=== PATIENT | male | born 1955 | race Caucasian/White ===

== ENCOUNTER 2018-10-17 04:56 | Inpatient (IN) ==
[2018-10-17] MEDS ORDERED: SODIUM CHLORIDE 0.9% 500 ML IV STA (05:20)
[2018-10-17] MEDS ORDERED: MORPHINE 4 MG/1 ML VIAL IV STA ×2 (05:20→07:18)
[2018-10-17] MEDS ORDERED: ASPIRIN 325 MG TABLET PO STA (05:20)
[2018-10-17] MEDS ORDERED: NITROGLYCERIN 2% OINT 1 INCH/GM PACK TOP STA (05:20)
[2018-10-17] MEDS ORDERED: ALUM/MAG/SIMETH/LIDO VISC 1:1 30 ML BOTTLE PO STA (05:20)
[2018-10-17] MEDS ORDERED: ONDANSETRON 4 MG/2 ML VIAL IV STA ×2 (05:20→07:18)
[2018-10-17] MEDS ORDERED: PANTOPRAZOLE 40 MG VIAL IV STA (05:22)
[2018-10-17 05:36] LABS: Basophils % 0.3 % (0.0-0.8); Eosinophils # 0.2 10*3/uL (0.0-0.87); Eosinophils % 1.7 % (0.00-10.9); Hematocrit 52.2 VOL% (42.0-52.0); Immature Granulocytes % 0.7 %; Lymphocytes # 1.3 10*3/uL (1.4-4.0); Lymphocytes % 9.7 % (21.2-54.2); Mean Corpuscular HGB Conc 32.6 GM/DL (32-36); Mean Corpuscular Hemoglobin 24 PG (27-34); Mean Corpuscular Volume 74.7 FL (87-102); Mean Platelet Volume 9.6 FL (9.6-12.0); Monocytes # 1.1 10*3/uL (0.11-0.8); Monocytes % 7.8 % (1.7-12.7); Neutrophils # 10.8 10*3/uL (1.4-7.4); Neutrophils % 79.8 % (38.7-73.9); Platelet Count 172 T/CUMM (130-400); Red Blood Count 6.99 MC/CUMM (3.8-5.5); White Blood Count 13.5 T/CUMM (4-12)
[2018-10-17 05:53] LABS: Albumin 3.4 G/DL (3.4-5.0); Bilirubin,Total 0.8 MG/DL (0.2-1.0); Calcium 9.3 MG/DL (8.5-10.1); Osmolality,Calculated 271.2 MOS/KG (273-304); Potassium 4.3 MMOL/L (3.5-5.1); Total Protein 7.6 G/DL (6.4-8.3)
[2018-10-17] MEDS ORDERED: DEXTROSE 50% 25 GM/50 ML VIAL IV PRN (07:27)
[2018-10-17] MEDS ORDERED: PROMETHAZINE 25 MG/1 ML VIAL IM PRN (07:27)
[2018-10-17] MEDS ORDERED: GLUCAGON 1 MG VIAL IM PRN (07:27)
[2018-10-17] MEDS ORDERED: SODIUM CHLORIDE 0.9% 1,000 ML IV SCH (07:30)
[2018-10-17] MEDS: INSULIN LISPRO 100 UNIT/ML SUBCUT SCH ×4 (09:30→21:21)
[2018-10-17] MEDS: ONDANSETRON 4 MG/2 ML VIAL IV PRN (09:34)
[2018-10-17] MEDS: PANTOPRAZOLE 40 MG TABLET PO SCH (11:00)
[2018-10-17] MEDS ORDERED: LEVOFLOXACIN INJ 750 MG in PREMIX 1 EACH IV SCH (11:00)
[2018-10-17] MEDS: ALBUTEROL/IPRATROPIUM 3 ML NEB RESP TX SCH ×2 (12:20→19:32)
[2018-10-17] MEDS: guaiFENesin/DM ER 600-30 MG TABLET PO SCH ×2 (12:23→21:16)
[2018-10-17] MEDS: TACROLIMUS 0.5 MG CAPSULE PO SCH (14:32)
[2018-10-17] MEDS: MYCOPHENOLATE MOFETIL 250 MG CAPSULE PO SCH ×2 (14:32→21:16)
[2018-10-17] MEDS: MORPHINE 4 MG/1 ML VIAL IV PRN ×2 (15:00→21:19)
[2018-10-17] MEDS ORDERED: LEVOFLOXACIN INJ 500 MG in PREMIX 1 EACH IV SCH (15:00)
[2018-10-17 15:30] LABS: Apearance,Urine CLEAR (Clear); Bilirubin,Urine Negative (Negative); Blood, Urine Small mg/dL (Negative); Glucose,Urine (UA) Negative (Negative); Ketones,Urine Negative (Negative); Mucus,Urine Occasional /LPF (Occasional); Nitrite,Urine Negative (Negative); Protein,Urine 30 MG/DL; RBC,Urine 18 /HPF (0-4); Urine Color Yellow (Yellow); Urine Specific Gravity 1.023 (1.001-1.035); WBC,Urine <1 /HPF (0-6)
[2018-10-17] MEDS ORDERED: FUROSEMIDE 40 MG/4 ML VIAL IV SCH (16:00)
[2018-10-18] MEDS: ALBUTEROL/IPRATROPIUM 3 ML NEB RESP TX SCH ×4 (01:03→20:14)
[2018-10-18] MEDS: MORPHINE 4 MG/1 ML VIAL IV PRN ×2 (04:59→09:12)
[2018-10-18 05:36] LABS: Basophils % 0.2 % (0.0-0.8); Hemoglobin 15.8 GM/DL (14.0-18.0); Immature Granulocytes % 1.5 %; Lymphocytes % 4.5 % (21.2-54.2); Mean Corpuscular HGB Conc 32.2 GM/DL (32-36); Mean Corpuscular Hemoglobin 24 PG (27-34); Mean Corpuscular Volume 75.2 FL (87-102); Mean Platelet Volume 10.1 FL (9.6-12.0); Monocytes % 8.3 % (1.7-12.7); Neutrophils % 85.5 % (38.7-73.9); Platelet Count 152 T/CUMM (130-400); Red Blood Count 6.52 MC/CUMM (3.8-5.5); Red Cell Distribution Width 18.2 % (9.3-17.3); White Blood Count 24.6 T/CUMM (4-12)
[2018-10-18 05:37] LABS: Basophils # 0.1 10*3/uL (0.0-0.2); Immature Granulocytes Absolute 0.37 #; Lymphocytes # 1.1 10*3/uL (1.4-4.0); Monocytes # 2.1 10*3/uL (0.11-0.8)
[2018-10-18 06:17] LABS: Lymphocytes 5 % (20-55); Platelet Estimate Adequate; Segmented Neutrophils 92 % (50-85); Total Cells Counted 100
[2018-10-18 06:26] LABS: Albumin 2.7 G/DL (3.4-5.0); Bilirubin,Total 1.5 MG/DL (0.2-1.0); Calcium 8.2 MG/DL (8.5-10.1); Potassium 3.6 MMOL/L (3.5-5.1); Thyroid Stimulating Hormone 4.09 uIU/ml (0.358-3.74); Total Protein 6.4 G/DL (6.4-8.3)
[2018-10-18] MEDS ORDERED: MAGNESIUM SULF RIDER 2 GM in PREMIX 1 EACH IV ONE (07:01)
[2018-10-18] MEDS: guaiFENesin/DM ER 600-30 MG TABLET PO SCH ×2 (09:13→20:10)
[2018-10-18] MEDS: TACROLIMUS 0.5 MG CAPSULE PO SCH (09:14)
[2018-10-18] MEDS: MYCOPHENOLATE MOFETIL 250 MG CAPSULE PO SCH ×2 (09:14→20:08)
[2018-10-18] MEDS: FUROSEMIDE 40 MG/4 ML VIAL IV SCH (09:14)
[2018-10-18] MEDS: PANTOPRAZOLE 40 MG TABLET PO SCH (09:14)
[2018-10-18] MEDS: INSULIN LISPRO 100 UNIT/ML SUBCUT SCH ×4 (09:31→20:09)
[2018-10-18] MEDS: HYDROmorphone 2 MG/1 ML VIAL IV PRN ×3 (10:41→23:18)
[2018-10-18] MEDS: LEVOFLOXACIN INJ 500 MG in PREMIX 1 EACH IV SCH (12:03)
[2018-10-18] MEDS ORDERED: cefOXitin 2,000 MG in SYRINGE 1 EACH IV ONE (13:12)
[2018-10-18] MEDS ORDERED: LIDOCAINE 1%/EPI INJ 20 ML VIAL ONE (13:33)
[2018-10-18] MEDS ORDERED: TISSUE ADHESIVE 1 EACH APPLICATOR TOP ONE (13:33)
[2018-10-18] MEDS: ACETAMINOPHEN 325 MG TABLET PO PRN ×2 (13:50→20:08)
[2018-10-18] MEDS ORDERED: ONDANSETRON 4 MG/2 ML VIAL ONE ×2 (14:11→18:02)
[2018-10-18] MEDS ORDERED: HYDROmorphone 2 MG/1 ML VIAL ONE (14:11)
[2018-10-18] MEDS ORDERED: ONDANSETRON 4 MG/2 ML VIAL IV PRN (14:14)
[2018-10-18] MEDS ORDERED: HYDROmorphone 2 MG/1 ML VIAL IV ONE (14:15)
[2018-10-18] MEDS ORDERED: MEPERIDINE 25 MG/1 ML VIAL ONE (17:50)
[2018-10-18] MEDS ORDERED: fentaNYL 100 MCG/2 ML VIAL ONE (18:02)
[2018-10-18] MEDS ORDERED: SEVOFLURANE 1 UNIT/15 MINUTE INH ONE (18:02)
[2018-10-18] MEDS ORDERED: LACTATED RINGERS 1,000 ML IV ONE ×2 (18:03→18:29)
[2018-10-18] MEDS ORDERED: ROCURONIUM 100 MG/10 ML VIAL IV ONE (18:03)
[2018-10-18] MEDS ORDERED: PHENYLEPHRINE 1 MG/10 ML SYRINGE IV ONE (18:03)
[2018-10-18] MEDS ORDERED: ETOMIDATE 40 MG/20 ML VIAL IV ONE (18:03)
[2018-10-18] MEDS ORDERED: SUCCINYLCHOLINE 200 MG/10 ML VIAL ONE (18:03)
[2018-10-18] MEDS ORDERED: MEPERIDINE 25 MG/1 ML VIAL IV ONE (18:11)
[2018-10-18 19:43] LABS: Basophils % 0.4 % (0.0-0.8); Eosinophils % 0.3 % (0.00-10.9); Hematocrit 45.7 VOL% (42.0-52.0); Hemoglobin 14.8 GM/DL (14.0-18.0); Immature Granulocytes % 4.2 %; Immature Granulocytes Absolute 0.44 #; Lymphocytes # 0.7 10*3/uL (1.4-4.0); Lymphocytes % 6.4 % (21.2-54.2); Mean Corpuscular HGB Conc 32.4 GM/DL (32-36); Mean Corpuscular Hemoglobin 25 PG (27-34); Mean Corpuscular Volume 76.2 FL (87-102); Mean Platelet Volume 9.6 FL (9.6-12.0); Monocytes # 0.3 10*3/uL (0.11-0.8); Neutrophils # 8.9 10*3/uL (1.4-7.4); Neutrophils % 85.7 % (38.7-73.9); Platelet Count 134 T/CUMM (130-400); Red Cell Distribution Width 17.6 % (9.3-17.3)
[2018-10-18 19:58] LABS: Alanine Aminotransferase 40 U/L (16-61); Albumin 2.1 G/DL (3.4-5.0); Alkaline Phosphatase 72 U/L (45-117); Aspartate Amino Transferase 38 U/L (0-37); Blood Urea Nitrogen 18 MG/DL (7-18); Calcium 7.6 MG/DL (8.5-10.1); Glucose 105 MG/DL (74-106); Osmolality,Calculated 269.2 MOS/KG (273-304); Potassium 3.9 MMOL/L (3.5-5.1); Sodium 134 MMOL/L (136-145); Total Protein 5.7 G/DL (6.4-8.3); White Blood Count 10.4 T/CUMM (4-12)
[2018-10-18 19:59] LABS: Lactic Acid 2.1 MMOL/L (0.4-2.0)
[2018-10-18 20:18] LABS: Apearance,Urine Slightly Hazy (Clear); Bilirubin,Urine Negative (Negative); Blood, Urine Small mg/dL (Negative); Glucose,Urine (UA) Negative (Negative); Ketones,Urine Negative (Negative); Nitrite,Urine Negative (Negative); Protein,Urine 30 MG/DL; RBC,Urine 3 /HPF (0-4); Squamous Epithelial Cell,Urine Occasional /HPF (0-10); Urine Color Amber (Yellow); Urine Specific Gravity 1.025 (1.001-1.035); WBC,Urine 1 /HPF (0-6)
[2018-10-18 20:58] LABS: ABG Base Excess 0.3 MMOL/L (-2.5-2.5); ABG HCO3 24.6 MMOL/L (20-26); ABG Oxygen Saturation 95.5 % (95-100); ABG PCO2 40.4 MM HG (35-48); ABG PH 7.401 (7.35-7.45); ABG PO2 80.6 MM HG (80-95); ABG TCO2 21.1 MMOL/L (23-27); Allen Test Positive
[2018-10-18] MEDS: LACTATED RINGERS 1,000 ML IV SCH (21:15)
[2018-10-19] MEDS: ALBUTEROL/IPRATROPIUM 3 ML NEB RESP TX SCH ×4 (01:40→19:45)
[2018-10-19] MEDS: HYDROmorphone 2 MG/1 ML VIAL IV PRN ×4 (04:30→22:20)
[2018-10-19] MEDS: LACTATED RINGERS 1,000 ML IV SCH (05:05)
[2018-10-19 07:24] LABS: Basophils % 0.3 % (0.0-0.8); Eosinophils # 0.2 10*3/uL (0.0-0.87); Eosinophils % 1.4 % (0.00-10.9); Hematocrit 47.9 VOL% (42.0-52.0); Hemoglobin 15.2 GM/DL (14.0-18.0); Immature Granulocytes % 0.9 %; Immature Granulocytes Absolute 0.13 #; Lymphocytes # 0.7 10*3/uL (1.4-4.0); Lymphocytes % 4.9 % (21.2-54.2); Mean Corpuscular HGB Conc 31.7 GM/DL (32-36); Mean Corpuscular Hemoglobin 24 PG (27-34); Mean Corpuscular Volume 76.4 FL (87-102); Mean Platelet Volume 9.7 FL (9.6-12.0); Monocytes % 6.9 % (1.7-12.7); Neutrophils % 85.6 % (38.7-73.9); Platelet Count 132 T/CUMM (130-400); Red Blood Count 6.27 MC/CUMM (3.8-5.5); Red Cell Distribution Width 18.1 % (9.3-17.3)
[2018-10-19 07:41] LABS: Osmolality,Calculated 268.5 MOS/KG (273-304); Potassium 4.3 MMOL/L (3.5-5.1)
[2018-10-19] MEDS: INSULIN LISPRO 100 UNIT/ML SUBCUT SCH ×4 (08:09→21:33)
[2018-10-19 08:12] LABS: Band Neutrophils 8 % (0-10); Eosinophils 2 % (0-10); Hypochromasia 1+; Lymphocytes 2 % (20-55); Microcytosis 1+; Segmented Neutrophils 83 % (50-85); Total Cells Counted 100
[2018-10-19] MEDS: MYCOPHENOLATE MOFETIL 250 MG CAPSULE PO SCH ×2 (09:07→21:32)
[2018-10-19] MEDS: TACROLIMUS 0.5 MG CAPSULE PO SCH (09:08)
[2018-10-19] MEDS: PANTOPRAZOLE 40 MG TABLET PO SCH (09:08)
[2018-10-19] MEDS: guaiFENesin/DM ER 600-30 MG TABLET PO SCH ×2 (09:08→21:32)
[2018-10-19] MEDS: FUROSEMIDE 40 MG/4 ML VIAL IV SCH (09:10)
[2018-10-19] MEDS: LEVOFLOXACIN INJ 500 MG in PREMIX 1 EACH IV SCH (09:15)
[2018-10-19] MEDS: DEXT 5% NACL 0.45% KCL 40 MEQ 40 MEQ/1,000 ML BAG IV SCH ×2 (10:21→21:30)
[2018-10-19] MEDS: ENOXAPARIN 40 MG/0.4 ML SYRINGE SUBCUT SCH (10:24)
[2018-10-19] MEDS: ONDANSETRON 4 MG/2 ML VIAL IV PRN ×2 (16:17→22:52)
[2018-10-20] MEDS: ALBUTEROL/IPRATROPIUM 3 ML NEB RESP TX SCH ×5 (00:16→23:55)
[2018-10-20] MEDS: TACROLIMUS 0.5 MG CAPSULE PO SCH ×4 (00:33→21:44)
[2018-10-20] MEDS ORDERED: BISACODYL 5 MG TABLET PO ONE (03:40)
[2018-10-20] MEDS: HYDROmorphone 2 MG/1 ML VIAL IV PRN (04:11)
[2018-10-20] MEDS: ONDANSETRON 4 MG/2 ML VIAL IV PRN (04:11)
[2018-10-20 06:29] LABS: Basophils % 0.2 % (0.0-0.8); Eosinophils # 0.1 10*3/uL (0.0-0.87); Eosinophils % 0.6 % (0.00-10.9); Hematocrit 54.2 VOL% (42.0-52.0); Hemoglobin 17.6 GM/DL (14.0-18.0); Immature Granulocytes % 1.7 %; Immature Granulocytes Absolute 0.31 #; Lymphocytes # 0.8 10*3/uL (1.4-4.0); Lymphocytes % 4.2 % (21.2-54.2); Mean Corpuscular HGB Conc 32.5 GM/DL (32-36); Mean Corpuscular Hemoglobin 24 PG (27-34); Mean Corpuscular Volume 75.1 FL (87-102); Mean Platelet Volume 9.4 FL (9.6-12.0); Monocytes # 1.3 10*3/uL (0.11-0.8); Monocytes % 6.9 % (1.7-12.7); Neutrophils # 15.7 10*3/uL (1.4-7.4); Neutrophils % 86.4 % (38.7-73.9); Platelet Count 167 T/CUMM (130-400); Red Blood Count 7.22 MC/CUMM (3.8-5.5); Red Cell Distribution Width 18.7 % (9.3-17.3); White Blood Count 18.1 T/CUMM (4-12)
[2018-10-20 06:47] LABS: Calcium 8.5 MG/DL (8.5-10.1); Osmolality,Calculated 269.8 MOS/KG (273-304); Potassium 4.4 MMOL/L (3.5-5.1)
[2018-10-20 06:51] LABS: Band Neutrophils 9 % (0-10); Eosinophils 3 % (0-10); Hypochromasia 1+; Lymphocytes 3 % (20-55); Segmented Neutrophils 81 % (50-85); Total Cells Counted 100
[2018-10-20 06:52] LABS: Burr Cells Slight; Microcytosis 1+
[2018-10-20] MEDS: DEXT 5% NACL 0.45% KCL 40 MEQ 40 MEQ/1,000 ML BAG IV SCH (08:08)
[2018-10-20] MEDS: guaiFENesin/DM ER 600-30 MG TABLET PO SCH ×2 (09:05→21:56)
[2018-10-20] MEDS: PANTOPRAZOLE 40 MG TABLET PO SCH (09:08)
[2018-10-20] MEDS: FUROSEMIDE 40 MG/4 ML VIAL IV SCH (10:42)
[2018-10-20] MEDS: INSULIN LISPRO 100 UNIT/ML SUBCUT SCH ×4 (10:42→21:56)
[2018-10-20] MEDS: LEVOFLOXACIN INJ 500 MG in PREMIX 1 EACH IV SCH (10:46)
[2018-10-20] MEDS ORDERED: SODIUM CHLORIDE 0.9% 500 ML IV ONE (11:10)
[2018-10-20] MEDS: MYCOPHENOLATE MOFETIL 250 MG CAPSULE PO SCH ×2 (11:50→21:44)
[2018-10-20] MEDS: ENOXAPARIN 40 MG/0.4 ML SYRINGE SUBCUT SCH (12:00)
[2018-10-20] MEDS: PANTOPRAZOLE 40 MG VIAL IV SCH (12:37)
[2018-10-20] MEDS: DEXT 5% NACL 0.9% KCL 40 MEQ 40 MEQ/1,000 ML BAG IV SCH ×2 (14:52→22:20)
[2018-10-21] MEDS: DEXT 5% NACL 0.9% KCL 40 MEQ 40 MEQ/1,000 ML BAG IV SCH ×3 (02:58→17:35)
[2018-10-21 05:29] LABS: Basophils # 0.1 10*3/uL (0.0-0.2); Basophils % 0.4 % (0.0-0.8); Eosinophils # 0.2 10*3/uL (0.0-0.87); Eosinophils % 1.2 % (0.00-10.9); Hematocrit 50.3 VOL% (42.0-52.0); Hemoglobin 16.3 GM/DL (14.0-18.0); Immature Granulocytes % 2.3 %; Immature Granulocytes Absolute 0.38 #; Lymphocytes # 1.3 10*3/uL (1.4-4.0); Lymphocytes % 7.8 % (21.2-54.2); Mean Corpuscular HGB Conc 32.4 GM/DL (32-36); Mean Corpuscular Hemoglobin 24 PG (27-34); Mean Corpuscular Volume 74.7 FL (87-102); Mean Platelet Volume 9.9 FL (9.6-12.0); Monocytes # 1.2 10*3/uL (0.11-0.8); Monocytes % 7.1 % (1.7-12.7); Neutrophils # 13.2 10*3/uL (1.4-7.4); Neutrophils % 81.2 % (38.7-73.9); Platelet Count 183 T/CUMM (130-400); Red Blood Count 6.73 MC/CUMM (3.8-5.5); Red Cell Distribution Width 18.4 % (9.3-17.3); White Blood Count 16.2 T/CUMM (4-12)
[2018-10-21 05:42] LABS: Calcium 7.8 MG/DL (8.5-10.1); Osmolality,Calculated 278.1 MOS/KG (273-304); Potassium 4.6 MMOL/L (3.5-5.1)
[2018-10-21] MEDS: INSULIN LISPRO 100 UNIT/ML SUBCUT SCH ×4 (08:51→22:23)
[2018-10-21] MEDS: TACROLIMUS 0.5 MG CAPSULE PO SCH ×3 (08:52→22:23)
[2018-10-21] MEDS: MYCOPHENOLATE MOFETIL 250 MG CAPSULE PO SCH ×2 (08:52→22:22)
[2018-10-21] MEDS: PANTOPRAZOLE 40 MG VIAL IV SCH (08:53)
[2018-10-21] MEDS: guaiFENesin/DM ER 600-30 MG TABLET PO SCH ×2 (08:53→22:23)
[2018-10-21] MEDS: LEVOFLOXACIN INJ 500 MG in PREMIX 1 EACH IV SCH (08:54)
[2018-10-21] MEDS: ENOXAPARIN 40 MG/0.4 ML SYRINGE SUBCUT SCH (09:33)
[2018-10-21] MEDS: FUROSEMIDE 40 MG/4 ML VIAL IV SCH (09:33)
[2018-10-21] MEDS: ALBUTEROL/IPRATROPIUM 3 ML NEB RESP TX SCH ×2 (14:30→19:35)
[2018-10-21] MEDS ORDERED: chlorproMAZINE INJ 25 MG in SODIUM CHLORIDE 0.9% 100 ML IV PRN (14:48)
[2018-10-22] MEDS: DEXT 5% NACL 0.9% KCL 40 MEQ 40 MEQ/1,000 ML BAG IV SCH (01:12)
[2018-10-22] MEDS: ALBUTEROL/IPRATROPIUM 3 ML NEB RESP TX SCH (04:50)
[2018-10-22 05:19] LABS: Basophils # 0.1 10*3/uL (0.0-0.2); Basophils % 0.8 % (0.0-0.8); Eosinophils # 0.4 10*3/uL (0.0-0.87); Eosinophils % 3.2 % (0.00-10.9); Hematocrit 44.1 VOL% (42.0-52.0); Hemoglobin 14.1 GM/DL (14.0-18.0); Immature Granulocytes % 5.9 %; Immature Granulocytes Absolute 0.79 #; Lymphocytes # 1.4 10*3/uL (1.4-4.0); Lymphocytes % 10.2 % (21.2-54.2); Mean Corpuscular Hemoglobin 24 PG (27-34); Mean Corpuscular Volume 76.3 FL (87-102); Mean Platelet Volume 9.5 FL (9.6-12.0); Monocytes # 1.5 10*3/uL (0.11-0.8); Monocytes % 11.3 % (1.7-12.7); Neutrophils # 9.1 10*3/uL (1.4-7.4); Neutrophils % 68.6 % (38.7-73.9); Platelet Count 169 T/CUMM (130-400); Red Blood Count 5.78 MC/CUMM (3.8-5.5); White Blood Count 13.3 T/CUMM (4-12)
[2018-10-22 05:38] LABS: Calcium 7.5 MG/DL (8.5-10.1); Osmolality,Calculated 280.7 MOS/KG (273-304); Potassium 4.4 MMOL/L (3.5-5.1)
[2018-10-22 07:47] LABS: Band Neutrophils 2 % (0-10); Eosinophils 7 % (0-10); Lymphocytes 9 % (20-55); Metamyelocytes 1 %; Platelet Estimate Normal; Segmented Neutrophils 68 % (50-85); Total Cells Counted 100
[2018-10-22] MEDS: MYCOPHENOLATE MOFETIL 250 MG CAPSULE PO SCH (10:13)
[2018-10-22] MEDS: FUROSEMIDE 40 MG/4 ML VIAL IV SCH (10:13)
[2018-10-22] MEDS: INSULIN LISPRO 100 UNIT/ML SUBCUT SCH ×2 (10:13→12:46)
[2018-10-22] MEDS: LEVOFLOXACIN INJ 500 MG in PREMIX 1 EACH IV SCH (10:14)
[2018-10-22] MEDS: PANTOPRAZOLE 40 MG VIAL IV SCH (10:15)
[2018-10-22] MEDS: TACROLIMUS 0.5 MG CAPSULE PO SCH ×2 (10:15)
[2018-10-22] MEDS: guaiFENesin/DM ER 600-30 MG TABLET PO SCH (10:15)
[2018-10-22] MEDS: ENOXAPARIN 40 MG/0.4 ML SYRINGE SUBCUT SCH (10:22)
[2018-10-22 11:52] VITALS: BP 151/72
[2018-10-23] MEDS ORDERED: LEVOFLOXACIN 750 MG TABLET PO SCH (09:00)
== END 2018-10-22 15:12 | disposition home or self-care (01) | DRG 418 ==
LOC: N.ED 04:56 → N.EDINP 04:56 → SUATTDRO 07:27 → N.3E 08:45 → N.CC 10-18 18:45 → N.3E 10-19 12:13
PROVIDERS: ADMIT Internal Medicine; ATTEND Internal Medicine
PROC: LAPCHOL (2018-10-18 15:57)